=== PATIENT | male | born 1990 | race Caucasian/White ===

== ENCOUNTER 2024-10-19 13:38 | Outpatient (AMB) | payer OTHER, SELFPAY ==
--- NOTE | 2024-10-19 13:39 | MHC.PC.OV ---
Vital Signs 10/19/24 13:51 Height 5 ft 9 in Weight 172 lb 4 oz BMI 25.4 BP 102/62 Blood Pressure Location Lt brachial Position Sitting Pulse 80 Pulse Source Pulse Oximeter Pulse Oximetry (%) 98 Oxygen Delivery Method Room Air Intake Visit Reasons: establish care Intake Note: Patient is a new patient here to establish care/FMLA form. Pt has not seen a primacy care provider in over 15 years. 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 Has not seen a PCP 15 years. He does suffer from PTSD, major depressive disorder, insomnia and anxiety. He is speaking with a mental health therapist at this time. He is not taking any medication. He has been having difficulty attending his job from time to time due to his insomnia and major depressive disorder. 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 He is applying for FMLA to get time off of work to handle with his mental disorders. Vaccines: Up-to-date with COVID vaccines, considering flu vaccine [facility] Social History (Updated 10/19/24 @ 16:05 by Orlando Sharif PA-C) Housing: Apartment Alcohol intake: current Alcohol intake frequency: a few times a month Alcohol type: beer Patient Tobacco Use Status: Never used Tobacco e-Cigarette/Vaping Use: Currently Using service: No Current occupational status: employed Current occupation: [employer] [place] Cognitive needs: No Hearing needs: No Vision needs: No Questionnaire PHQ-9 Over the last 2 weeks, how often have you been bothered by any of the following problems? 38399 - PHQ-9 Billing: Patient declined-do not bill Source: Developed by Drs. Femi Powell, Teri Wilkerson, Dav Vásquez and colleagues, with an educational ann from [employer]. Thrive Questionnaire Date Thrive assessed: 10/19/24 I am a: Patient What is your living situation today?: I choose not to answer this question Within the past 12 months, did the food you bought not last and you didn't have the money to get more?: I choose not to answer this question Within the past 12 months, did you worry whether your food would run out before you got money to buy more?: I choose not to answer this question Do you have trouble paying for medicines?: I choose not to answer this question Do you have trouble getting transportation to medical appointments?: I choose not to answer this question Do you have trouble paying your heating and electricity bill?: I choose not to answer this question Do you have trouble taking care of your child, family member or friend?: I choose not to answer this question Do you have trouble with day-to-day activities such as bathing, preparing meals, shopping, managing finances, etc.?: I choose not to answer this question Are you currently unemployed and looking for a job?: I choose not to answer this question Are you interested in more education?: I choose not to answer this question Please select the resources that you would like help with: None Currently or been in a relationship where the following occur: No concerns reported THRIVE Score: 0 AUDIT C Alcohol Use Questionnaire (AUDIT-C) 1. How often do you have a drink containing alcohol?: 4 or more times a week 2. How many drinks containing alcohol do you have on a typical day when you are drinking?: 3 or 4 3. How often do you have six or more drinks on one occasion?: Monthly Total Score: 7 ENDY-7 AMB Questionnaire ENDY-7 Date ENDY - 7 assessed: 10/19/24 Feeling nervous, anxious, or on edge: 1 = Several days Not being able to stop or control worryin = Several days Worrying too much about different things: 1 = Several days Trouble relaxin = More than half the days Being so restless that it is hard to sit still: 2 = More than half the days Becoming easily annoyed or irritable: 1 = Several days Feeling afraid as if something awful might happen: 1 = Several days Total ENDY-7 score (0-4 normal; 5-9 mild; 10-14 moderate; 15-21 severe): 9 Source: Developed by Drs. Femi Powell, Teri Wilkerson, Dav Vásquez and colleagues, with an educational ann from [employer]. ENDY-7 Assessment Billing ENDY-7 Assessment Tool: ENDY-7 Assessment 90773 Review of Systems Const Denies headache(s) Eyes Denies loss of vision ENT Denies vertigo, Denies dizziness, Denies headache(s) and Denies sore throat Card Denies chest pain, Denies leg edema and Denies lightheadedness Resp Denies cough, Denies hemoptysis and Denies wheezing GI Denies abdominal pain, Denies melena, Denies constipation, Denies diarrhea and Denies vomiting Denies dysuria, Denies urinary frequency and Denies urinary urgency Musc Denies arthralgias, Denies joint swelling, Denies numbness and Denies tingling Neuro Denies Abnormal speech present, Denies behavioral changes, Denies vertigo, Denies dizziness, Denies headache(s), Denies loss of vision, Denies memory loss, Denies numbness and Denies tingling Psych Reports abnormal sleep pattern, Reports anxiety, Denies behavioral changes, Reports depression, Reports difficulty concentrating, Reports irritability, Denies memory loss and Denies panic attacks [place]/Lymph Denies easy bleeding and Denies easy bruising Aller/Immun Denies wheezing Physical exam (Primary Care) Vital Signs: Last Vital Signs Pulse 80 10/19/24 13:51 BP 102/62 10/19/24 13:51 Pulse Ox 98 10/19/24 13:51 Oxygen Delivery Method Room Air 10/19/24 13:51 BMI result Body Mass Index 25.4 Tobacco/Smoking Status: Tobacco use Status Tobacco use date assessed 10/19/24 10/19/24 13:56 Patient Tobacco Use Status Never used Tobacco 10/19/24 13:56 e-Cigarette/Vaping Use Currently Using 10/19/24 13:56 Thrive Assessment: Date of Thrive Assessment Date Thrive assessed 10/19/24 10/19/24 13:56 Currently or been in a relationship where the following occur: No concerns reported Const General: healthy appearing, no acute distress, alert and awake Nutritional Appearance: well nourished Orientation/consciousness: oriented to person, oriented to place and oriented to time HENMT Ears: TM's normal bilaterally General nose exam: Normal nasal mucous membranes and turbinates present Eyes Conjunctivae: conjunctivae normal Sclerae: sclerae normal Pupils: Equal, round and reactive pupils present Neck Neck: Yes no lymphadenopathy and Yes no JVD Thyroid: Thyroid normal Carotids: no bruits Resp Effort & Inspection: normal respiratory effort and not tachypneic Auscultation: no crackles, no rales, no rhonchi and no wheezes Cardio Rate: regular rate Rhythm: regular rhythm Heart sounds: no murmurs and normal S1 and S2 GI Palpation (GI): Soft to palpation, nontender, no hepatomegaly and no splenomegaly Auscultation: normal bowel sounds Skin General skin exam: no rashes or lesions noted and dry skin Neuro General: oriented to person, oriented to place and oriented to time Cranial nerves: Yes Equal, round and reactive pupils present Speech: No Abnormal speech present Gait exam (Neuro): Normal gait present Motor exam (neuro): no tremor noted Extrem Right upper extremity: full ROM Left upper extremity: full ROM Right lower extremity: full ROM; no edema Left lower extremity: full ROM; no edema Psych Mental Status: mental status grossly normal Speech and movement: Normal speech and movement present Affect: normal affect Attitude: cooperative Thought process: Normal thought process present Office Procedures Flu Questionnaire Does the patient have a severe egg allergy?: No Immunizations Fluarix Triv [id number] (PF) 45 mcg (15 mcg x 3)/0.5 mL IM syringe Performing Provider: Orlando Sharif PA-C [place] [place] [facility] Documented (not given) by: ALFREDITO Berg on 10/19/24 13:57 Reason Not Given: Patient Refused Coding Level of Care Code New Pt Level 4 (52541) Diagnoses Primary insomnia F51.01 Insomnia type: primary PTSD (post-traumatic stress disorder) F43.10 MDD (major depressive disorder), recurrent episode, mild F33.0 Screening for diabetes mellitus (DM) Z13.1 ENDY (generalized anxiety disorder) F41.1 Additional Codes ENDY-7 Assessment Billing - ENDY-7 Assessment Tool: ENDY-7 Assessment 00073 ([id number]) Assessment & Plan Assessment & Plan (1) Insomnia: Code(s): G47.00 - Insomnia, unspecified Category: Medical Qualifiers: Insomnia type: primary Qualified Code(s): F51.01 - Primary insomnia Plan: And has a lot of difficulty sleeping. Often wakes up and unable to attend work due to being fatigued. 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 (2) PTSD (post-traumatic stress disorder): Code(s): F43.10 - Post-traumatic stress disorder, unspecified Category: Medical Plan: As per HPI (3) MDD (major depressive disorder), recurrent episode, mild: Code(s): F33.0 - Major depressive disorder, recurrent, mild Category: Medical Plan: As per HPI (4) Screening for diabetes mellitus (DM): Code(s): Z13.1 - Encounter for screening for diabetes mellitus Category: Medical Plan: As per HPI (5) ENDY (generalized anxiety disorder): Code(s): F41.1 - Generalized anxiety disorder Category: Medical Plan: Endy 7 score positive for anxiety which has been existing condition for him. He is speaking with a mental health therapist about this. Orders: Orders Complete Blood Count no Diff Today Z13.1 - Encounter for screening for diabetes mellitus Influenza [id number] Immunization Today Z23 - Encounter for immunization Comprehensive [place]. Panel Fast Today Z13.1 - Encounter for screening for diabetes mellitus
[2024-10-19 13:51] VITALS: BP 102/62; PULSE 80; O2SAT 98; BMI 25.4
== END 2024-10-19 14:19 | disposition home or self-care (01) ==
PROVIDERS: PCP Pediatrics; Visit Provider Physician Assistant
DX: F51.01 Primary insomnia (principal); F43.10 Post-traumatic stress disorder, unspecified; F33.0 Major depressive disorder, recurrent, mild; Z13.1 Encounter for screening for diabetes mellitus; F41.1 Generalized anxiety disorder; Z23 Encounter for immunization

== ENCOUNTER → 2024-10-19 13:38 | Outpatient (BNVA) | payer OTHER, SELFPAY | PROVIDERS: PCP Pediatrics; Visit Provider Physician Assistant | DX: F51.01 Primary insomnia (principal); F43.10 Post-traumatic stress disorder, unspecified; F33.0 Major depressive disorder, recurrent, mild; F41.1 Generalized anxiety disorder | CPT/HCPCS: 90471; 96127 ==